=== PATIENT | male | born 1935 | race Caucasian/White ===

== ENCOUNTER 2017-02-10 14:33 | Emergency (ER) | payer BC ==
[2017-02-10 16:30] LABS: HEMOGLOBIN 13.7 gm/dl (14.0-17.5); RED BLOOD COUNT 4.41 M/UL (4.20-5.50); WHITE BLOOD COUNT 5.9 K/UL (4.5-11.0)
[2017-02-10 16:53] LABS: BUN/CREATININE RATIO 28 (0-10)
[2017-02-11] MEDS ORDERED: NITROSTAT 0.40.4 MG SL (08:52)
[2017-02-11] MEDS ORDERED: LISINOPRIL10 MG PO (08:53)
[2017-02-11] MEDS ORDERED: COREG 12.5MG12.5 MG PO (08:53)
[2017-02-11] MEDS ORDERED: LIPITOR TAB 2020 MG PO (08:54)
[2017-02-11] MEDS ORDERED: KLOR-CON 1010 MEQ PO (08:54)
[2017-02-11] MEDS ORDERED: NAPROXEN250 MG PO (08:55)
[2017-02-11] MEDS ORDERED: NOVOLOG MI100 UNIT/2 SQ (08:56)
[2017-02-11] MEDS ORDERED: NORCO 5-325 TA1 EACH PO (13:02)
[2017-04-04] MEDS ORDERED: DULOXETINE HCL30 MG PO (06:49)
[2017-04-04] MEDS ORDERED: NOVOLOG 10100 UNITS1 SQ (06:52)
== END 2017-02-10 18:00 | disposition home or self-care (01) ==
LOC: ER1 14:33
PROVIDERS: Physician Assistant Medical
DX: S68.124A Partial traumatic metacarpophalangeal amputation of right ring finger, initial encounter (principal); E11.9 Type 2 diabetes mellitus without complications; I51.9 Heart disease, unspecified; Z95.1 Presence of aortocoronary bypass graft; Z23 Encounter for immunization; W23.0XXA Caught, crushed, jammed, or pinched between moving objects, initial encounter; Y92.009 Unspecified place in unspecified non-institutional (private) residence as the place of occurrence of the external cause; Z79.4 Long term (current) use of insulin; Z79.899 Other long term (current) drug therapy
CPT/HCPCS: 36415; 73130; 80053; 85025; 93005; 99284

== ENCOUNTER → 2017-02-11 | Day surgery (SDC) | payer MEDICARE, BC ==
[~2017-02-11] VITALS: Ht 180.3 cm; Wt 90.3 kg
[~2017-02-11] MED LIST: ASPIR 8181 MG PO; COREG 12.5MG12.5 MG PO; COREG 25MG TAB25 MG PO; DULOXETINE HCL30 MG PO; KLOR-CON 1010 MEQ PO; LANTUS100 UNIT/1 SQ; LIPITOR TAB 2020 MG PO; LISINOPRIL10 MG PO; NAPROXEN250 MG PO; NITROSTAT 0.40.4 MG SL; NORCO 5-325 TA1 EACH PO; NOVOLOG 10100 UNITS1 SQ; NOVOLOG MI100 UNIT/2 SQ; VIT D3 PO
== END | disposition home or self-care (01) ==
LOC: OR 07:38
PROVIDERS: Orthopaedic Surgery
PROC: 0HQQXZZ Repair Finger Nail, External Approach (ICD-10-PCS; 2017-02-11)
PROC: 0PST04Z Reposition Right Finger Phalanx with Internal Fixation Device, Open Approach (ICD-10-PCS; principal; 2017-02-11 18:00)
PROC: 0HTQXZZ Resection of Finger Nail, External Approach (ICD-10-PCS; 2017-02-11 18:00)
DX: S62.634A Displaced fracture of distal phalanx of right ring finger, initial encounter for closed fracture (principal); I25.10 Atherosclerotic heart disease of native coronary artery without angina pectoris; I10 Essential (primary) hypertension; I25.2 Old myocardial infarction; E11.9 Type 2 diabetes mellitus without complications; M19.90 Unspecified osteoarthritis, unspecified site; Z95.1 Presence of aortocoronary bypass graft; Z87.891 Personal history of nicotine dependence; S67.194A Crushing injury of right ring finger, initial encounter; S61.304A Unspecified open wound of right ring finger with damage to nail, initial encounter
CPT/HCPCS: 73140; 76000; 82962; J0690; J1815; J7030; J7120

== ENCOUNTER 2017-03-06 10:49 | Inpatient (IN) | payer MEDICARE, BC ==
[~2017-03-06] VITALS: Ht 177.8 cm; Wt 90.3 kg
[~2017-03-06 10:49] MED LIST changes: -ASPIR 8181 MG PO; -COREG 25MG TAB25 MG PO; -DULOXETINE HCL30 MG PO; -LANTUS100 UNIT/1 SQ; -NOVOLOG 10100 UNITS1 SQ; -VIT D3 PO
[2017-03-06] MEDS ORDERED: COREG 25MG TAB25 MG PO (11:45)
[2017-03-06] MEDS ORDERED: LANTUS100 UNIT/1 SQ ×2 (11:46→11:47)
[2017-03-06] MEDS ORDERED: ASPIR 8181 MG PO (11:48)
[2017-03-06] MEDS ORDERED: VIT D3 PO (11:49)
[2017-03-06 19:05] LABS: HEMOGLOBIN 13.7 gm/dl (14.0-17.5); RED BLOOD COUNT 4.47 M/UL (4.20-5.50); WHITE BLOOD COUNT 7.3 K/UL (4.5-11.0)
[2017-03-06 19:26] LABS: BUN/CREATININE RATIO 26 (0-10)
[2017-03-07 07:30] LABS: HEMOGLOBIN 13.4 gm/dl (14.0-17.5); RED BLOOD COUNT 4.47 M/UL (4.20-5.50); WHITE BLOOD COUNT 6.9 K/UL (4.5-11.0)
[2017-03-07 07:40] LABS: BUN/CREATININE RATIO 24 (0-10)
[2017-03-08 06:23] LABS: BUN/CREATININE RATIO 24 (0-10)
[2017-03-09 04:56] LABS: HEMOGLOBIN 13.9 gm/dl (14.0-17.5); RED BLOOD COUNT 4.6 M/UL (4.20-5.50); WHITE BLOOD COUNT 7.3 K/UL (4.5-11.0)
[2017-03-09 05:15] LABS: BUN/CREATININE RATIO 30 (0-10)
[2017-03-10 04:50] LABS: HEMOGLOBIN 13.5 gm/dl (14.0-17.5); RED BLOOD COUNT 4.46 M/UL (4.20-5.50); WHITE BLOOD COUNT 6.3 K/UL (4.5-11.0)
[2017-03-10 05:38] LABS: BUN/CREATININE RATIO 30 (0-10)
[2017-03-11 12:02] LABS: BUN/CREATININE RATIO 28 (0-10)
[2017-03-12 05:54] LABS: BUN/CREATININE RATIO 26 (0-10)
[2017-04-04] MEDS ORDERED: DULOXETINE HCL30 MG PO (06:49)
[2017-04-04] MEDS ORDERED: NOVOLOG 10100 UNITS1 SQ (06:52)
== END 2017-03-12 13:50 | DRG 580 ==
LOC: OR 10:49 → M/S 16:23 → OR 18:45 → M/S 03-07 10:00
PROVIDERS: Internal Medicine; Physician Assistant; ADMIT Orthopaedic Surgery
PROC: 0PP Upper Bones, Removal (ICD-10-PCS; 2017-03-06)
PROC: 0JBJ0ZZ Excision of Right Hand Subcutaneous Tissue and Fascia, Open Approach (ICD-10-PCS; principal; 2017-03-06 15:00)
PROC: 0M9 Bursae and Ligaments, Drainage (ICD-10-PCS; 2017-03-06 15:00)
DX: L03.011 Cellulitis of right finger (principal); L02.511 Cutaneous abscess of right hand; E87.1 Hypo-osmolality and hyponatremia; M67.442 Ganglion, left hand; B95.62 Methicillin resistant Staphylococcus aureus infection as the cause of diseases classified elsewhere; E11.65 Type 2 diabetes mellitus with hyperglycemia; I25.10 Atherosclerotic heart disease of native coronary artery without angina pectoris; I10 Essential (primary) hypertension; S62.634D Displaced fracture of distal phalanx of right ring finger, subsequent encounter for fracture with routine healing; Z46.4 Encounter for fitting and adjustment of orthodontic device; W23.0XXD Caught, crushed, jammed, or pinched between moving objects, subsequent encounter; E78.5 Hyperlipidemia, unspecified; Z95.1 Presence of aortocoronary bypass graft; Z87.891 Personal history of nicotine dependence; Z79.82 Long term (current) use of aspirin; Z79.4 Long term (current) use of insulin; Z79.899 Other long term (current) drug therapy; Z98.42 Cataract extraction status, left eye; Z98.41 Cataract extraction status, right eye; Z98.890 Other specified postprocedural states; Z82.49 Family history of ischemic heart disease and other diseases of the circulatory system; Z83.3 Family history of diabetes mellitus; Z80.9 Family history of malignant neoplasm, unspecified
CPT/HCPCS: 36415; 80048; 80202; 82947; 82962; 83036; 85027; 87070; 87077; 87186; 87205; G0378; J0690; J1815; J2250; J2405; J3010; J3370; J7030; J7050; J7070; J7120

== ENCOUNTER → 2017-04-04 | Day surgery (SDC) | payer MEDICARE, BC ==
[~2017-04-04] VITALS: Ht 177.8 cm; Wt 86.6 kg
[~2017-04-04] MED LIST changes: +ASPIR 8181 MG PO; +COREG 25MG TAB25 MG PO; +DULOXETINE HCL30 MG PO; +LANTUS100 UNIT/1 SQ; +NOVOLOG 10100 UNITS1 SQ; +VIT D3 PO
== END | disposition home or self-care (01) ==
LOC: OR 05:40
PROVIDERS: Orthopaedic Surgery
PROC: 0X6S0Z1 Detachment at Right Ring Finger, High, Open Approach (ICD-10-PCS; principal; 2017-04-04 10:00)
DX: M86.9 Osteomyelitis, unspecified (principal); I10 Essential (primary) hypertension; I25.2 Old myocardial infarction; I25.10 Atherosclerotic heart disease of native coronary artery without angina pectoris; E11.9 Type 2 diabetes mellitus without complications; Z87.891 Personal history of nicotine dependence; Z79.2 Long term (current) use of antibiotics; Z79.82 Long term (current) use of aspirin; Z79.891 Long term (current) use of opiate analgesic; Z79.899 Other long term (current) drug therapy; Z95.1 Presence of aortocoronary bypass graft; Z98.890 Other specified postprocedural states
CPT/HCPCS: 82962; 93005; J2795; J3010; J3370; J7030; J7120

== ENCOUNTER → 2020-12-10 | Outpatient (CLI) | payer MEDICARE, BC, OTHER ==
[2020-12-10 05:55] LABS: HEMOGLOBIN 14.3 gm/dl (14.0-17.5); RED BLOOD COUNT 4.73 M/UL (4.20-5.50)
[2020-12-10 06:19] LABS: BUN/CREATININE RATIO 33 (0-10)
== END ==
LOC: LAB 05:33
PROVIDERS: Emergency Medicine
DX: U07.1 COVID-19 (principal); I11.0 Hypertensive heart disease with heart failure; I50.9 Heart failure, unspecified; E11.9 Type 2 diabetes mellitus without complications
CPT/HCPCS: 80053; 80061; 83036; 85025

== ENCOUNTER 2021-06-03 07:44 | Inpatient (IN) | payer MEDICARE, BC, OTHER ==
[~2021-06-03] VITALS: Ht 177.8 cm; Wt 89.0 kg
[2021-06-03 08:34] LABS: HEMOGLOBIN 14.3 gm/dl (14.0-17.5); RED BLOOD COUNT 4.64 M/UL (4.20-5.50); WHITE BLOOD COUNT 10.5 K/UL (4.5-11.0)
[2021-06-03 09:04] LABS: BUN/CREATININE RATIO 37 (0-10)
[2021-06-03] MEDS ORDERED: NOVOLOG FL100 UNIT/1 SQ (16:11)
[2021-06-03] MEDS ORDERED: LEVOFLOXACIN500 MG PO (16:13)
[2021-06-03] MEDS ORDERED: COREG6.25 MG PO (16:13)
[2021-06-03] MEDS ORDERED: ULTRAM50 MG PO (16:13)
[2021-06-03] MEDS ORDERED: TYLENOL EXTRA500 MG PO ×2 (16:14)
[2021-06-03] MEDS ORDERED: SPIRIVA HANDIH18 MCG INH (16:15)
[2021-06-03] MEDS ORDERED: ARICEPT10 MG PO (16:15)
[2021-06-03] MEDS ORDERED: TOUJEO MAX300 UNIT/1 SQ (16:15)
[2021-06-03] MEDS ORDERED: FLONASE 0.05% N16 GM (16:16)
[2021-06-03] MEDS ORDERED: PROVENTIL HFA6.7 GM INH (16:17)
[2021-06-03] MEDS ORDERED: DESITIN CREAM 660 GM TOP (16:17)
[2021-06-03] MEDS ORDERED: NAMENDA10 MG PO (16:18)
[2021-06-03] MEDS ORDERED: PROSCAR5 MG PO (16:18)
[2021-06-03] MEDS ORDERED: BISACODYL10 MG PR (16:19)
[2021-06-03] MEDS ORDERED: ENULOSE10 GM/15 M PO (16:19)
[2021-06-03] MEDS ORDERED: MAGIC BUTT CREAM TOP (16:21)
--- NOTE | 2021-06-03 21:03 | NUR ---
NOTIFIED DR BORDEN OF PATIENT PASSING. NOTIFIED TIM. SPOKE WITH FAMILY AND HAD THEM SIGN THE AUTHORIZATION TO RELEASE BODY TO HOME.
== END 2021-06-03 20:25 | disposition expired | DRG 299 ==
LOC: ER1 07:44 → CDU 14:00 → M/S 16:40
PROVIDERS: Emergency Medicine; ADMIT Internal Medicine
DX: E11.51 Type 2 diabetes mellitus with diabetic peripheral angiopathy without gangrene (principal); J96.00 Acute respiratory failure, unspecified whether with hypoxia or hypercapnia; J69.0 Pneumonitis due to inhalation of food and vomit; G93.41 Metabolic encephalopathy; J98.11 Atelectasis; N39.0 Urinary tract infection, site not specified; E87.0 Hyperosmolality and hypernatremia; Z66 Do not resuscitate; Z51.5 Encounter for palliative care; Z20.822 Contact with and (suspected) exposure to COVID-19; I11.0 Hypertensive heart disease with heart failure; J44.9 Chronic obstructive pulmonary disease, unspecified; I50.9 Heart failure, unspecified; G47.33 Obstructive sleep apnea (adult) (pediatric); E11.40 Type 2 diabetes mellitus with diabetic neuropathy, unspecified; I82.403 Acute embolism and thrombosis of unspecified deep veins of lower extremity, bilateral; I25.10 Atherosclerotic heart disease of native coronary artery without angina pectoris; L89.312 Pressure ulcer of right buttock, stage 2; I71.4 Abdominal aortic aneurysm, without rupture; N40.0 Benign prostatic hyperplasia without lower urinary tract symptoms; I48.91 Unspecified atrial fibrillation; K21.9 Gastro-esophageal reflux disease without esophagitis; F03.90 Unspecified dementia, unspecified severity, without behavioral disturbance, psychotic disturbance, mood disturbance, and anxiety; K80.20 Calculus of gallbladder without cholecystitis without obstruction; Z87.440 Personal history of urinary (tract) infections; Z86.16 Personal history of COVID-19; Z95.1 Presence of aortocoronary bypass graft; Z79.01 Long term (current) use of anticoagulants; Z79.82 Long term (current) use of aspirin; Z88.8 Allergy status to other drugs, medicaments and biological substances; Z74.01 Bed confinement status
CPT/HCPCS: 0240U; 71045; 80048; 80053; 82550; 82553; 83874; 83880; 84484; 85025; 85379; 85730; 93005; 93925; 93970; 94660; 94760; 96374; 96375; 96376; 99285; J0692; J1644; J2060; J2270; J2310; J2405; J3370; J7030; J7050; Q9967